=== PATIENT | female | born 1970 | race Two or more races ===

== ENCOUNTER 2019-04-11 12:50 | Emergency (ER) | payer OTHER ==
[~2019-04-11] VITALS: Ht 157.5 cm; Wt 113.4 kg
--- NOTE | 2019-04-11 12:57 | NUR ---
ED Nurse Note: Pt brought in by EMS due to S/P fall at a supermarket and is now c/o left knee pain. Denies LOC. Pt is AAO x4, able to move LLE without assist. No redness or swelling at this time.
--- NOTE | 2019-04-11 13:45 | Diagnostic Imaging Report ---
EXAM: XR Left Foot Complete, 3 or More Views CLINICAL HISTORY: TRAUMA TECHNIQUE: Frontal, lateral and oblique views of the left foot. COMPARISON: No relevant prior studies available. FINDINGS: Bones/joints: No acute fracture. Plantar and posterior calcaneal spurs. Soft tissues: No radiodense foreign body. Soft tissue swelling. IMPRESSION: No acute fracture.
--- NOTE | 2019-04-11 13:46 | Diagnostic Imaging Report ---
EXAM: XR Left Knee, 3 views CLINICAL HISTORY: TRAUMA TECHNIQUE: Three views of the left knee. COMPARISON: No relevant prior studies available. FINDINGS: Bones/joints: No acute fracture. Mild degenerative changes. Soft tissues: No radiodense foreign body. Mild soft tissue swelling IMPRESSION: No acute fracture.
[2019-04-11] MEDS ORDERED: NAPROXEN500 M2 ORAL (14:04)
[2019-04-11] MEDS ORDERED: VOLTAREN100 G1 TP (14:04)
--- NOTE | 2019-04-11 14:04 | Emergency Room Report ---
History of Present Illness General Chief Complaint: Multiple Trauma/Fall Source: Patient Present Illness HPI 49-year-old female with no significant past medical history and obese here complaining of left knee pain that occurred after falling in a grocery store today. Patient is brought in by the paramedics. Patient is ambulatory and in no distress. Patient reports that she was walking inside the grocery store as she slipped and fell on her left knee and reports that her left big toe banded. Denies head trauma, loss of consciousness. Rating the knee pain 7 out of 10 without radiation denying tingling and numbness. Rating her foot pain 3 out of 10 without radiation. Has not taken medication for pain yet. Denies chest pain , shortness of breath, palpitation, abdominal pain, and all other associated symptoms. Allergies: Coded Allergies: No Known Allergies (Unverified , 04/11/19) Patient History Past Medical History: see triage record Past Surgical History: unable to obtain Pertinent Family History: unable to obtain Now: No Immunizations: UTD Reviewed Nursing Documentation: PMH: Agreed; PSxH: Agreed Nursing Documentation-PMH Past Medical History: No Stated History Review of Systems All Other Systems: negative except mentioned in HPI Physical Exam Vital Signs Date Time Temp Pulse Resp B/P (MAP) Pulse Ox O2 Delivery O2 Flow Rate FiO2 04/11/19 12:47 98.4 80 16 156/90 (112) 99 Sp02 EP Interpretation: reviewed, normal General Appearance: normal inspection, well appearing, no apparent distress, alert, GCS 15 Head: normocephalic, atraumatic Eyes: bilateral eye normal inspection, bilateral eye PERRL ENT: hearing grossly normal, normal pharynx Neck: normal inspection, full range of motion, supple Respiratory: normal inspection, chest non-tender, lungs clear, no rhonchi, no retraction, no wheezing Cardiovascular #1: normal inspection, regular rate, rhythm, no murmur, normal capillary refill Cardiovascular #2: 2+ dorsalis pedis (R), 2+ dorsalis pedis (L) Gastrointestinal: normal inspection, no mass, no organomegaly Rectal: deferred Genitourinary: no CVA tenderness Musculoskeletal: back normal, digits/nails normal, gait/station normal, normal range of motion, non-tender, no calf tenderness Neurologic: normal inspection, alert, oriented x3, responsive Psychiatric: normal inspection, judgement/insight normal, memory normal Skin: no rash Lymphatic: normal inspection, no adenopathy Medical Decision Making PA Attestation All my diagnosis and treatment plans were reviewed ad discussed with my supervising physician Dr. Cunningham Diagnostic Impression: Primary Impression: Left knee sprain Additional Impression: Contusion of left foot ER Course 49-year-old female with no significant past medical history and obese here complaining of left knee pain that occurred after falling in a grocery store today. Patient is brought in by the paramedics. Patient is ambulatory and in no distress. Patient reports that she was walking inside the grocery store as she slipped and fell on her left knee and reports that her left big toe banded. Denies head trauma, loss of consciousness. Rating the knee pain 7 out of 10 without radiation denying tingling and numbness. Rating her foot pain 3 out of 10 without radiation. Has not taken medication for pain yet. Denies chest pain , shortness of breath, palpitation, abdominal pain, and all other associated symptoms. Ddx considered but are not limited to: Knee sprain, strain, fracture, contusion , meniscus tear injury, foot sprain versus fracture versus contusion Vital signs: are WNL, pt. is afebrile H&PE are most consistent with: Left knee sprain, left foot contusion ORDERS: Knee x-ray, foot x-ray, naproxen, Voltaren gel ER intervention: Tylenol 650 DISCHARGE: At this time pt. is stable for d/c to home. Will provide printed patient care instructions, and any necessary prescriptions. Care plan and follow up instructions have been discussed with the patient prior to discharge. Follow-up with your primary care provider keep the Henri bandage on alternate between icing and heating the affected area if worsening symptoms return to the emergency room Other X-Ray Diagnostic Results Other X-Ray Diagnostic Results #1: X-Ray ordered: Left knee # of Views/Limited Vs Complete: 3 View Indication: Pain EP Interpretation: Yes PA Xray: Interpretation reviewed, by supervising MD, and agrees with findings. Interpretation: no dislocation, no soft tissue swelling, no fractures Impression: No acute disease Electronically Signed by: Gisella Gastelum PA-C Other X-Ray Diagnostic Results #2: X-Ray ordered: Left foot # of Views/Limited Vs Complete: 3 View Indication: Pain EP Interpretation: Yes PA Xray: Interpretation reviewed, by supervising MD, and agrees with findings. Interpretation: no dislocation, no soft tissue swelling, no fractures Impression: No acute disease Electronically Signed by: Gisella Gastelum PA-C Last Vital Signs Date Time Temp Pulse Resp B/P (MAP) Pulse Ox O2 Delivery O2 Flow Rate FiO2 04/11/19 12:57 77 20 04/11/19 12:47 98.4 156/90 (112) 99 Disposition: HOME, SELF-CARE Condition: Stable Scripts Diclofenac Sodium (VOLTAREN) 100 Gm Gel..gram. 2 GM TP TID, #100 GM Prov: Gisella Hubbard 04/11/19 Naproxen* (NAPROXEN*) 500 Mg Tablet 500 MG ORAL TWICE A DAY, #30 TAB Prov: Gisella Hubbard 04/11/19 Referrals: NON PHYSICIAN (PCP) Patient Instructions: Foot Contusion, [id number], Knee Sprain, [id number] Additional Instructions: Take medication as directed keep Henri bandage on follow-up with your primary care provider if worsening symptoms return to the emergency room Gisella Hubbard Apr 11, 2019 14:04
[2019-04-11 14:19] VITALS: BP 145/87
--- NOTE | 2019-04-11 14:19 | NUR ---
ER DISCHARGE NOTE: Patient is cleared to be discharged per PA, pt is aox4, on room air, with stable vital signs. pt was given dc and prescription instructions, pt was able to verbalize understanding, pt id band removed without complications. pt is able to ambulates and pt took all belongings.
== END 2019-04-11 14:19 | disposition home or self-care (01) ==
LOC: EDBD 12:50 → EMR 13:13
DX: S83.92XA Sprain of unspecified site of left knee, initial encounter (principal); S90.32XA Contusion of left foot, initial encounter; W01.0XXA Fall on same level from slipping, tripping and stumbling without subsequent striking against object, initial encounter; Y92.512 Supermarket, store or market as the place of occurrence of the external cause
CPT/HCPCS: 99284